=== PATIENT | male | born 1990 | race Caucasian/White ===

== ENCOUNTER 2018-09-01 23:21 | Emergency (ER) | payer MEDICAID, SELFPAY ==
[2018-09-01 23:22] VITALS: BP 110/62; PULSE 86; RESP 16; TEMP 36.4; O2SAT 98; BMI 28.2
[2018-09-01 23:55] VITALS: BP 110/62; PULSE 86; RESP 15; TEMP 36.6; O2SAT 100
[2018-09-01 23:55] LABS: Bacteria 0 SEEN /hpf (None Seen); Squamous Epithelial Cells - UA 0 SEEN /hpf (0-5)
[2018-09-02 00:04] LABS: Color, Urine Amber (Yellow); Glucose, Dipstick NEGATIVE (Normal); Ketone-Dipstick 5 mg/dl (Negative); Leukocyte Esterase-Dipstick 100 /ul (Negative); Nitrite-Dipstick Negative (Negative); Occult Blood-Urine 250 /ul (Negative); Protein-Dipstick 30 mg/dl (Negative); Specific Gravity, Urine 1.025 (1.002-1.030); Urine Bilirubin Dipstick 1 mg/dL (Negative); Urine Clarity Sl Cldy (Clear); Urine Urobilinogen 4 mg/dl (Normal)
[2018-09-02 00:06] LABS: Absolute Lymphocyte Count 2.66 X10^3/ul (0.83-4.51); Absolute Neutrophil Count 2.4 X10^3/uL (2.0-7.7); Basophil# 0.02 X10^3/uL; Basophil% 0.3 % (0-1); Eosinophil# 0.44 X10^3/uL; Eosinophils% 7.1 % (0-5); Hematocrit 39.4 % (40-54); Hemoglobin 13.8 g/dl (13.0-16.5); Lymphocyte # 2.66 X10^3/ul (4.0); Mean Corpuscular Hgb 32.2 pg (27.0-32.0); Mean Corpuscular Volume 91.8 fL (80-94); Mean Platelet Vol. 9.6 fl (6.2-12.0); Monocyte# 0.69 X10^3/uL; Monocyte% 11.2 % (0-10); Neutrophil # 2.36 X10^3/uL (2.7-7.7); Neutrophil % 38.2 % (47-70); Platelet Count 179 K/mm3 (150-450); RBC Distribution Width CV 13.5 % (11.6-14.6); RBC Distribution Width SD 44.8 fl (35.1-43.9); Red Blood Count 4.29 M/mm3 (4.6-6.2); White Blood Count 6.2 K/mm3 (4.4-11.0)
[2018-09-02 00:06] LABS: Mucous, Urine 2+ /hpf (<or=2+); Red Blood Cells-Urine 50-100 SEEN /hpf (0-5); White Blood Cells 0-5 SEEN /hpf (0-5)
[2018-09-02 00:08] LABS: POSITIVE COUNT NO; POSITIVE DIFFERENTIAL NO; POSITIVE MORPHOLOGY NO
[2018-09-02 00:19] LABS: Anion Gap 5 (5-15); BUN 13 mg/dL (7-18); BUN/Creat Ratio 11.9 RATIO (10-20); Calcium,Total 7.8 mg/dL (8.5-10.1); Chloride 110 mmol/L (98-107); Creatinine, Serum 1.09 mg/dL (0.70-1.30); EST Glomerular Filtration Rate 86 mL/min (>60); Est Glom Filt Rate - Afr Amer 104 mL/min (>60); Estimated Creatinine Clearance 115.04 ml/min; Glucose 90 mg/dL (74-106); Potassium 3.9 mmol/L (3.5-5.1); Sodium Level 142 mmol/L (136-145)
--- NOTE | 2018-09-02 00:53 | ED.RN ---
PER DR. DAWKINS SEPSIS SCREEN COMPLETED. NOT INDICATED.
--- NOTE | 2018-09-02 01:04 | ED.VISSUMM ---
- ER Visit Summary Date of Service: 09/02/18 Chief Complaint: Hematuria History of Present Illness: The patient is a 28 M who presents with hematuria. This began about 2 hours ago. He does also complain of dysuria. No urgency or frequency. He does complain of some suprapubic pressure. He has been having left lower quadrant abdominal pain for a week but this is really only with coughing or sneezing. He is also had some back pain although he attributes this to some chronic back pain. He also complains of generalized lack of energy and fatigue. Physical Examination: Afebrile vitals normal Moist mucous membranes Heart regular rate and rhythm Lungs clear Abdomen soft he does have some left lower quadrant and suprapubic tenderness Alert Test Results: CBC BMP unremarkable. Urinalysis shows blood otherwise normal. CT the abdomen and pelvis is normal. Emergency Department Course and Treatment: Given the patient was also complaining of abdominal pain the above work-up was pursued. This is unremarkable. I did advise the patient of the need for outpatient follow-up and advised that differential would include cancer. He was given a referral to Dr. Kay and discharged home but does understand return for new or worsening symptoms. Treatment Plan: [] Disposition: Discharge Impression: Hematuria This note was generated with [employer] dictation software. It may contain incorrect words, spelling, and punctuation that were not noted in review of the chart prior to signing ED Disposition - Plan for ED Patient: Referrals: Care Physician,No Primary [Primary Care Provider] -
--- NOTE | 2018-09-02 01:06 | ED.DEP ---
ED Disposition - Plan for ED Patient: Instructions: ED Hematuria Referrals: Care Physician,No Primary [Primary Care Provider] - Geraldo Kay MD [STAFF PHYSICIAN] -
[2018-09-02 01:19] VITALS: BP 101/76; PULSE 70; RESP 14; O2SAT 100
--- NOTE | 2018-09-02 23:38 | CT_ITS ---
STUDY: CT ABDOMEN AND PELVIS WITHOUT CONTRAST REASON FOR EXAM: Male, 28 years old. Abdominal pain. Hematuria. RADIATION DOSAGE (If Supplied By Facility): CTDIvol = ( 8.69 ) mGy, DLP = ( 503.84 ) mGycm TECHNIQUE: Transaxial images were obtained from the dome of the diaphragm to the symphysis pubis without oral contrast, and without intravenous contrast. Sagittal and coronal images were reconstructed. Individualized dose optimization techniques were used for this CT. COMPARISON: None. FINDINGS: The visualized lung bases are unremarkable. The visualized portions of the heart are within normal limits. Normal liver. Normal gallbladder and extrahepatic biliary system. Normal spleen. Normal pancreas. Normal bilateral adrenal glands. Normal right kidney. Normal left kidney. Normal visualized stomach. Normal small intestine. Normal colon. The appendix is visualized and appears normal. Normal abdominal aorta. Normal inferior vena cava. Normal retroperitoneum. Normal urinary bladder. There is NO ascites or free air, abscess or adenopathy. Normal abdominal wall. Normal osseous structures. CT/Abdomen/Pelvis without Cont IMPRESSION: Normal unenhanced CT of the abdomen and pelvis. There are NO kidney stones or ureteral stones. There is NO hydronephrosis. Electronically Signed: Sanchez Jiménez MD at 0:54 EDT , Service support ,
== END 2018-09-02 01:23 | disposition home or self-care (01) ==
PROVIDERS: Emergency Provider Emergency Medicine
DX: R31.9 Hematuria, unspecified (principal); R30.0 Dysuria; R10.32 Left lower quadrant pain; G89.29 Other chronic pain; M54.9 Dorsalgia, unspecified; Z72.0 Tobacco use
CPT/HCPCS: 74176; 80048; 81001; 85025; 99283

== ENCOUNTER 2020-02-18 21:25 | Emergency (ER) | payer SELFPAY ==
[2020-02-18 21:25] VITALS: BP 123/70; PULSE 83; RESP 16; TEMP 37.1; O2SAT 100; BMI 27.7
--- NOTE | 2020-02-18 22:04 | DCINST.ED_ITS ---
ED Disposition - Plan for ED Patient: Instructions: ED Tooth Pain Prescriptions: Clindamycin [Cleocin] 300 mg PO 4X/DAY #80 cap Prescription Printed Naproxen [Naprosyn] 500 mg PO BID PRN #20 tab Prescription Printed Hydrocodone Bitart/Apap 5-325 [[place] 5MG-325MG] 1 tab PO Q6H PRN PRN 2 Days #6 tab PRN Reason: Pain Prescription Printed Referrals: Care Physician,No Primary [Primary Care Provider] -
--- NOTE | 2020-02-18 22:07 | ED.DCSUM_ITS ---
- ER Visit Summary Date of Service: 02/18/20 Chief Complaint: Dental pain History of Present Illness: The patient is a 30 M presenting with dental pain. Patient states this started 3 days ago. He has pain to the left upper molar. He states his tooth broke awhile ago. He states it became painful 3 days ago. He feels like his face is sensitive on the left side. He denies fever. He does not currently have a dentist. Physical Examination: Vitals are stable. Patient is afebrile. Alert no acute distress. HEENT exam left upper molar fracture, tenderness. No surrounding fluctuance. No sublingual edema. Neck is supple. Lungs are clear and equal bilaterally. Heart is regular rate and rhythm. Extremities are unremarkable. Skin is warm and dry. Remainder of exam is unremarkable. Emergency Department Course and Treatment: Patient has an allergy to penicillin. He was given clindamycin. He drove himself to the ED. He was given Naprosyn. He was given prescription for short course of [place], clindamycin, Naprosyn. He is given the dental referral list. Advised to follow-up with dentist. Advised return the ED for worsening complaints. Disposition: Discharge home Impression: Odontalgia This note was generated with [employer] dictation software. It may contain incorrect words, spelling, and punctuation that were not noted in review of the chart prior to signing ED Disposition - Plan for ED Patient: Instructions: ED Tooth Pain Prescriptions: Clindamycin [Cleocin] 300 mg PO 4X/DAY #80 cap Prescription Printed Naproxen [Naprosyn] 500 mg PO BID PRN #20 tab Prescription Printed Hydrocodone Bitart/Apap 5-325 [[place] 5MG-325MG] 1 tab PO Q6H PRN PRN 2 Days #6 tab PRN Reason: Pain Prescription Printed Referrals: Care Physician,No Primary [Primary Care Provider] -
[2020-02-18] MEDS: Clindamycin HCl 150 MG Capsule 300 MG PO (22:19)
[2020-02-18] MEDS: Naproxen 500 MG Tablet PO (22:19)
[2020-02-18 22:21] VITALS: RESP 16; O2SAT 98
== END 2020-02-18 22:22 | disposition home or self-care (01) ==
PROVIDERS: Emergency Provider Emergency Medicine
DX: K08.89 Other specified disorders of teeth and supporting structures (principal); Z88.0 Allergy status to penicillin
CPT/HCPCS: 99283

== ENCOUNTER 2022-12-19 23:02 | Emergency (ER) | payer SELFPAY ==
[2022-12-19 23:03] VITALS: BP 116/80; PULSE 81; RESP 15; TEMP 36.9; O2SAT 97; BMI 28.1
--- NOTE | 2022-12-19 23:38 | EDS_ITS ---
HPI History of Present Illness Chief Complaint: Laceration Narrative Narrative: Then punched through a window. He is got multiple lacerations over his right forearm and arm region. No other injury no head injury or fall. No foreign body sensation. [facility] Medical History no medical history Home Medications clindamycin HCl 150 mg capsule 300 mg (2 x 150 mg) PO 4X/DAY #80 caps 02/18/20 [Rx Last Taken Unknown] naproxen 500 mg tablet 500 mg PO BID PRN #20 tabs 02/18/20 [Rx Last Taken Unknown] Allergy/AdvReac Type Severity Reaction Status Date / Time Penicillins Allergy Anaphylaxis Verified 02/18/20 21:27 Sulfa (Sulfonamide Allergy Swelling Verified 02/18/20 21:27 Antibiotics) Surgical History (Updated 12/19/22 @ 23:08 by Ruma Gilbert) H/O wrist surgery Social History Smoking Status: Current some day smoker tobacco type: cigarettes ROS ROS ED ROS Narrative Past medical history: none. Tetanus is not up-to-date Medications: Reviewed Social history: Noncontributory Review of systems: Musculoskeletal: Lacerations as above. No bony tenderness Skin: Lacerations as above Neurological: No weakness or paresthesias Hematologic: No easy bleeding or easy bruising EXAM Physical Exam Narrative Exam Narrative: Physical exam General: Patient does not appear in significant distress . Head: Normocephalic, Atraumatic Neck: No C-spine tenderness Cardiovascular: Normal distal pulses Back: Nontender, Normal Inspection. Extremities: Full lacerations, there is a 3 cm laceration on the antecubital. On the back of the arm posterior elbow region there is a 5 cm laceration to 3 cm laceration and a 3 cm flap laceration. No foreign body. Skin: No abrasions, no lacerations Neurological: Normal strength and sensation Const Vital Signs: 12/19/22 23:03 Temperature 98.4 F Temperature Source Temporal Pulse Rate 81 Respiratory Rate 15 Blood Pressure 116/80 Blood Pressure Mean 92 Pulse Ox 97 Oxygen Delivery Method Room Air PROC Procedures Other Procedures Procedure(s): Verbal consent Laceration of the arm. There is a total of 4 lacerations totaling 15 cm. 1% lidocaine, for local I probed and explored all the wounds there is no foreign body. The and to keep 3 cm laceration received 3 of the 4 nylon sutures The 5 cm posterior laceration received 5 of the 4 nylon sutures, the 3 cm horizontal laceration posterior arm received 3 sutures and the 3 cm flap laceration received 4 sutures. Patient tolerated procedure well. MDM MDM MDM Narrative Medical decision making narrative: At this time there is no need for x-ray, he has no foreign body sensation and I did not find any foreign body on exploration. He has no bony tenderness therefore I am not worried about a fracture. He did admit to a half a bottle of tequila. When he is sober or if he has a ride he can be discharged. Tetanus was updated in the ED. Not believe ethanol level is needed at this time. Discharge Plan Triage Chief Complaint: Laceration ED Provider: Bran Chakraborty Dx/Rx/DC Orders Clinical Impression: Laceration, Alcohol intoxication Instructions: ED Alcohol Intoxication, ED Laceration Extremity Prescriptions: No Action clindamycin HCl 150 MG capsule 300 mg PO 4X/DAY Qty: 80 0RF naproxen 500 MG tablet 500 mg PO BID PRN Qty: 20 0RF Primary Care Provider: Care Physician,No Primary Referrals: Care Physician,No Primary [Primary Care Provider] - 10 Day for suture removal Disposition Disposition: Home, Self Care
[2022-12-19 23:42] VITALS: BP 116/80; PULSE 81; RESP 15; O2SAT 97
[2022-12-19] MEDS: Diphth,Pertuss(Acell),Tet Vac 0.5 ML Vial IM (23:47)
== END 2022-12-20 00:58 | disposition home or self-care (01) ==
PROVIDERS: Emergency Provider Emergency Medicine; Visit Provider Emergency Medicine
DX: S51.811A Laceration without foreign body of right forearm, initial encounter (principal); F10.129 Alcohol abuse with intoxication, unspecified; F17.210 Nicotine dependence, cigarettes, uncomplicated; W25.XXXA Contact with sharp glass, initial encounter; Z23 Encounter for immunization; S51.011A Laceration without foreign body of right elbow, initial encounter
CPT/HCPCS: 12005; 90715; 99284

== ENCOUNTER 2023-04-14 16:21 | Emergency (ER) | payer MEDICAID, SELFPAY ==
[2023-04-14 16:21] VITALS: O2SAT 98
[2023-04-14 16:22] VITALS: BP 137/86; PULSE 104; RESP 18; TEMP 36.7; O2SAT 100; BMI 29.1
--- OUTSIDE RECORDS SUMMARY | 2023-04-14 17:21 | XMS RPT_ITS | CCD ---
Author Name Unknown Address [address] [place] [address] Organization [facility] Care Team Providers Care Employee Service Officer Name Role Phone MARISA COLLIER Attending GREGORIO Pedersen Attending Mark Jean Baptiste Attending Unavailable PROVIDER, UNKNOWN Referring Unavailable No, PCP Primary Care Unavailable Allergies Allergy Classification Reported Allergen(s) Allergy Type Date of Onset Reaction(s) Facility (1 source) Penicillins; Translations: [PENICILLINS] Propensity to adverse reactions to drug (disorder) [facility] (1 source) Sulfonamides (Antibiotic); Translations: [SULFA (SULFONAMIDE ANTIBIOTICS)] Propensity to adverse reactions to drug (disorder) 4 [facility] Problems Problem Classification Problem Date Documented Date Episodic/Chronic Acute bronchitis (2 sources) Acute bronchitis, unspecified; Translations: [Acute bronchitis, unspecified] Onset: 06-22-2018 Episodic Intracranial injury (1 source) Concussion without loss of consciousness, initial encounter; Translations: [Concussion without loss of consciousness, initial encounter] Onset: 06-14-2018 Episodic Lymphadenitis (2 sources) Localized enlarged lymph nodes; Translations: [Localized enlarged lymph nodes] Onset: 06-22-2018 Episodic Other acquired deformities (2 sources) Scoliosis, unspecified; Translations: [Scoliosis, unspecified] Onset: 06-22-2018 Chronic Other acquired deformities (2 sources) Spondylolisthesis, lumbosacral region; Translations: [Spondylolisthesis, lumbosacral region] Onset: 06-22-2018 Episodic Other upper respiratory infections (3 sources) Streptococcal pharyngitis; Translations: [Acute streptococcal tonsillitis, unspecified] Onset: 04-13-2018 Episodic Spondylosis; intervertebral disc disorders; other back problems (2 sources) Other intervertebral disc displacement, lumbosacral region; Translations: [Other intervertebral disc displacement, lumbosacral region] Onset: 06-22-2018 Chronic Spondylosis; intervertebral disc disorders; other back problems (2 sources) Low back pain; Translations: [Low back pain] Onset: 06-22-2018 Episodic Superficial injury; contusion (1 source) Contusion of left front wall of thorax, initial encounter; Translations: [Contusion of left front wall of thorax, initial encounter] Onset: 06-14-2018 Episodic Results Test Name Value Interpretation Reference Range Facil ity Encounters Encounter Date Encounter Type Care Provider Facility Start: 06-22-2018 Emergency department patient visit Mark Rg [facility] Start: 06-14-2018 End: 06-14-2018 Emergency department patient visit GREGORIO VALERIO [facility] Start: 04-13-2018 End: 04-13-2018 Emergency department patient visit MARISA RICO AMIRA [facility] Payers Date Payer Category Payer Unknown [id number] Unknown Summary Purpose Family History No Family History Records FoundNo Family History Records FoundNo Family History Records Found Advance Directives No Advanced Directives Records FoundNo Advanced Directives Records FoundNo Advanced Directives Records Found Additional Source Comments (unrecognized sect ion and content) No Status Records FoundNo Status Records FoundNo Status Records Found INFORMATION SOURCE (unrecogn ized section and content) DATE CREATED AUTHOR AUTHOR'S ORGANIZ ATION 07/21/2018 [facility] DATE CREATED AUTHOR AUTHOR'S ORGANIZ ATION 09/03/2018 [facility] FOR RECORDS PERTAINING TO PATIENTS WHO ARE OR HAVE BEEN ENROLLED IN A CHEMICAL DEPENDENCY/SUBSTANCEABUSE PROGRAM, SOME INFORMATION MAY BE OMITTED. This clinical summary was aggregated from multiple sources. Caution should be exercised in using it in the provision of clinical care. This summary normalizes information from multiple sources, and as a consequence, information in this document may materially change the coding, format and clinical context of patient data. In addition, data may be omitted in some cases. CLINICAL DECISIONS SHOULD BE BASED ON THE PRIMARY CLINICAL RECORDS. [facility] [employer] provides no warranty or guarantee of the accuracy or completeness of information in this document.
--- NOTE | 2023-04-14 17:40 | EX.ED.VIS.UR ---
HPI HPI - URI History of Present Illness Chief Complaint: Cough Narrative Narrative: 33-year-old male with cough, fever, chills, myalgias. Patient also reports sneezing. Patient states he otherwise healthy but he is a smoker. Onset of symptoms was 3 days ago. He states he has a sick daughter at home who is now recovering. Her symptoms started last week. Patient denies chest pain. Patient states he was urged by his family come get evaluated because he has significant body aches and chills. Denies nausea or vomiting. Denies diarrhea. Eating and drinking normally. Making normal urine and stool ROS ROS ED Constitutional Constitutional ED: Reports chills and fever(s); Denies sweats Eyes Eyes: Denies blurry vision or change in vision ENT ENT ED: Reports rhinorrhea and sore throat; Denies ear pain Cardiovascular Cardiovascular: Denies chest pain, palpitations or racing heartbeat Respiratory/Chest Respiratory/Chest: Reports cough; Denies dyspnea or sputum Gastrointestinal Gastrointestinal: Denies abdominal pain, constipation, diarrhea, nausea or vomiting Genitourinary Genitourinary ED: Denies dysuria, hematuria or urinary frequency Musculoskeletal Musculoskeletal: Reports myalgias; Denies arthralgias or neck pain Integumentary Denies abscess, Abrasions or rash Neurologic Neurologic: Denies headache(s), paresthesias or weakness Psychiatric Psychiatric: Denies anxiety, depression, suicidal ideation or suicidal thoughts Endocrine Endocrinology: Denies polydipsia or polyuria PFSH PFSH Home Medications clindamycin HCl 150 mg capsule 300 mg (2 x 150 mg) PO 4X/DAY #80 caps 02/18/20 [Rx Last Taken Unknown] naproxen 500 mg tablet 500 mg PO BID PRN #20 tabs 02/18/20 [Rx Last Taken Unknown] Allergy/AdvReac Type Severity Reaction Status Date / Time Penicillins Allergy Anaphylaxis Verified 04/14/23 16:22 Sulfa (Sulfonamide Allergy Swelling Verified 04/14/23 16:22 Antibiotics) Surgical History H/O wrist surgery Social History Smoking Status: Current some day smoker tobacco type: cigarettes EXAM Physical Exam Const Vital Signs: 04/14/23 16:22 Temperature 98.1 F Temperature Source Temporal Pulse Rate 104 H Respiratory Rate 18 Blood Pressure 137/86 H Blood Pressure Mean 103 Pulse Ox 100 Oxygen Delivery Method Room Air Positive well nourished General Appearance ED: NAD; Negative for pallor HEENT Reports moist mucous membranes normocephalic and atraumatic Throat: posterior oropharynx normal Eyes PERRL and EOMs intact bilaterally Neck no lymphadenopathy and supple Resp normal respiratory effort and clear to auscultation bilaterally Auscultation: Negative for rales, rhonchi or wheezes Cardio Rate: regular rate Rhythm: regular rhythm GI non-tender Neuro oriented x3 and CN's II-XII intact bilaterally Sensorium / Orientation: alert Motor Exam: strength 5/5 throughout Psych mental status grossly normal Skin General Skin Exam: Negative for jaundice or pallor MDM MDM MDM Narrative Medical decision making narrative: Presenting with fever, chills, cough, sneezing. Vital signs stable he is afebrile. On examination he has some mild rhinorrhea. Lungs are clear to auscultation. Heart regular rate and rhythm without murmur. Positive for influenza B today. He is counseled on alternating Tylenol and ibuprofen. For his congestion he is counseled to use Mucinex in conjunction with afrin. Patient declines analgesia or antiemetic. He feels otherwise well. Canceled to drink plenty of fluids. We discussed smoking cessation as this will prolong his illness. Impression: 1. Influenza B. Discharge Plan Triage Chief Complaint: Cough ED Provider: Rupert Sosa Dx/Rx/DC Orders Instructions: ED Viral Syndrome (Adult) Prescriptions: No Action clindamycin HCl 150 MG capsule 300 mg PO 4X/DAY Qty: 80 0RF naproxen 500 MG tablet 500 mg PO BID PRN Qty: 20 0RF Primary Care Provider: Care Physician,No Primary Referrals: [facility] [Outside] - 3-5 Days Care Physician,No Primary [Primary Care Provider] - Disposition Disposition: Home, Self Care
== END 2023-04-14 18:10 | disposition home or self-care (01) ==
PROVIDERS: Emergency Provider Student in an Organized Health Care Education/Training Program; Visit Provider Student in an Organized Health Care Education/Training Program
DX: J10.1 Influenza due to other identified influenza virus with other respiratory manifestations (principal); F17.210 Nicotine dependence, cigarettes, uncomplicated
CPT/HCPCS: 87631; 99282